=== PATIENT | male | born 1995 | race Caucasian/White ===

== ENCOUNTER 2023-01-29 10:38 | Outpatient (CLI) | payer BC, SELFPAY ==
--- NOTE | ~2023-01-29 | XR_ITS ---
EXAMINATION: XR fl inj knee LT for MR/CT DATE: 01/29/2023 11:42 INDICATION: Acute pain of left knee. TECHNIQUE: A time-out was performed to verify the patient's name, date of , and procedure to b e performed. The procedure including the risks, benefits, and alternatives was discussed with the pat ient. Risks discussed included bleeding and infection. The patient understood the risks and agreed to proceed. The skin overlying the left knee joint was prepped and draped in usual sterile fashion. An esthetic was administered with 1% lidocaine subcutaneously. A 22 G needle was advanced under fluoros copic guidance into the joint. Subsequently, injectate consisting of 40 mL of 1:200 Multihance, 1:4 1% lidocaine, and 1:4 Omnipaque 240 was instilled. The needle was removed and the entry site was fariba aned and dressed. There were no immediate complications. Fluoroscopy exposure time was 0.1 minutes. The total number of images was 3. FINDINGS: Real-time fluoroscopy demonstrates the needle and contrast in the left knee joint. IMPRESSION: 1. Successful left knee joint injection of contrast for subsequent MR arthrography. Reviewed, dictated and finalized at location A. IMPRESSION: 1. Successful left knee joint injection of contrast for subsequent MR arthrogra y.
--- NOTE | ~2023-01-29 | MR_ITS ---
EXAMINATION: MR knee LT w con DATE: 01/29/2023 11:58 INDICATION: Acute onset left knee pain TECHNIQUE: Magnetic resonance imaging (MRI) arthrogram of the left knee was performed with intra-omaira cular contrast but without intravenous contrast. Details of the contrast mixture in joint injection h ave been dictated separately. Sequences included axial and coronal PD-weighted FS FSE, axial, sagitta l and coronal PD-weighted FSE, sagittal and coronal T1-weighted FS FSE and sagittal T2-weighted FSE. COMPARISON: 01/30/2017 FINDINGS: Medial compartment: Medial meniscus is normal. Articular cartilage is normal. Lateral compartment: Complex tear of the lateral meniscus which includes a bucket-handle tear of the body and posterior ho rn of the lateral meniscus with medial displacement of the meniscal flap which extends from the poste rior margin of the anterior horn and from the advanced distally along the lateral side of the interco ndylar notch. Small secondary tear planes along the nondisplaced portion of the posterior horn. Artic ular cartilage is normal. Patellofemoral compartment: Partial-thickness chondral ulceration involving <50% the cartilage thickness and without degenerative subchondral changes at the central aspect of the medial patellar facet and apical ridge. The periphe ral/near full-thickness chondral ulceration with underlying mild cortical irregularity and a few foci of mild subarticular edema-like signal changes at the inferior aspect of the medial and lateral mullins llar facets and intervening apical ridge. Shallow chondral fissuring along the inferior margin of the medial trochlea. Remainder of the trochlear cartilage is normal. Ligaments and tendons: Anterior and posterior cruciate ligaments are normal. The medial collateral ligament and fibular mariann ateral ligament complex are normal. The extensor mechanism is normal. The visualized medial and later al hamstring tendons as well as the iliotibial band are normal. Fluid: Injected contrast fills the left knee joint space moderately distending the suprapatellar pouch. No l oose osteochondral bodies identified. No Rosenbaum's cyst or other abnormal fluid collections. Osseous/other: Bone alignment is normal. No fracture or pathologic marrow replacing process. Scarring and foci of webb sceptibility artifact likely related to prior arthroscopy along tracks both medial and lateral sides of Hoffa's fat pad. IMPRESSION: 1. Complex tear of the lateral meniscus including a medially displaced bucket-handle meniscal flap. 2. 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 Reviewed, dictated and finalized at location A. IMPRESSION: 1. Complex tear of the lateral meniscus including a medially displaced bucket-h andle meniscal flap. 2. 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
== END 2023-01-29 10:39 | disposition home or self-care (01) ==
PROVIDERS: PCP Family Medicine Sports Medicine; Visit Provider Family Medicine Sports Medicine
DX: M89.9 Disorder of bone, unspecified (principal); Z87.828 Personal history of other (healed) physical injury and trauma; M94.9 Disorder of cartilage, unspecified; S83.272A Complex tear of lateral meniscus, current injury, left knee, initial encounter; X58.XXXA Exposure to other specified factors, initial encounter; M17.12 Unilateral primary osteoarthritis, left knee
CPT/HCPCS: 20610; 73722; 77002; A9577; Q9966